=== PATIENT | female | born 2000 | race Hispanic/Latino ===

== ENCOUNTER → 2021-07-22 11:23 | Outpatient (CLI) | payer BC, SELFPAY ==
--- NOTE | ~2021-07-22 | US_ITS ---
EXAMINATION: US soft tissue head and neck DATE: 07/22/2021 11:35 INDICATION: Right supraclavicular mass. TECHNIQUE: Multiple grayscale and Doppler ultrasound images of the right supraclavicular region were obtained. COMPARISON: None FINDINGS: There is a 3.6 x 0.9 x 2.7 cm subcutaneous mass in the right supraclavicular region that is isoechoic with subcutaneous fat with similar echotexture. IMPRESSION: 1. 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 Reviewed, dictated and finalized at location B. TRIMMER
== END ==
PROVIDERS: PCP Nurse Practitioner Adult Health; Visit Provider Nurse Practitioner Adult Health
DX: R59.0 Localized enlarged lymph nodes (principal)
CPT/HCPCS: 76536

== ENCOUNTER 2022-03-28 18:59 | Emergency (ER) | payer BC, SELFPAY ==
--- NOTE | ~2022-03-28 | XR_ITS ---
EXAMINATION: XR chest 2V 03/28/2022 19:19 INDICATION: Shortness of breath and chest pain PROCEDURE: 2 view chest COMPARISON: No prior studies for comparison. FINDINGS: The lungs are clear. The cardiomediastinal silhouette is within normal limits. There are no pleural effusions. There is no pneumothorax suspected. The lungs are hyperinflated which is cons istent with, but not diagnostic of chronic obstructive pulmonary disease. IMPRESSION: 1: NO ACUTE CARDIOPULMONARY DISEASE. Reviewed, dictated and finalized at location A.
--- NOTE | 2022-03-28 19:08 | ED.CHESTPAIN ---
HPI - Chest Pain General Chief Complaint: Shortness of Breath/Dyspnea Stated Complaint: sob/cp Time Seen by Provider: 03/28/22 19:06 History of Present Illness HPI narrative: 22-year-old female presents emergency room for evaluation of a right anterior chest pain. Patient states pain does not radiate, describes the pain as a throbbing sensation. Patient states pain lasts for about 10 minutes and then resolves on its own. Patient denies any associated symptoms. Patient does admit to having URI symptoms last week with cough. Patient also reports that she takes Concerta on a regular basis, and her primary care physician recently increased her dose. Review of Systems Review of Systems: CONSTITUTIONAL: Denies fever, chills, or sweats. EYES: Denies visual changes, redness, or discharge. ENT: Denies rhinorrhea, congestion, sore throat, or otalgia. CARDIOVASCULAR: Reports chest pain, palpitations, or edema. RESPIRATORY: Denies cough or dyspnea. GASTROINTESTINAL: Denies abdominal pain, nausea, vomiting, or diarrhea. GENITOURINARY: Denies dysuria or hematuria. SKIN: Denies rash or itching. MUSCULOSKELETAL: Denies back pain, joint pain, or myalgia. NEUROLOGIC: Denies headache, numbness, dizziness, or weakness. PSYCHIATRIC: Denies anxiety or depression. Exam Narrative: GENERAL: Well-appearing, well-nourished, no physical limitations, and in no acute distress. HEAD: Normocephalic, atraumatic. EYES: Conjunctivae normal, PERRLA and EOMI. NECK: Supple. No meningeal signs. No adenopathy or masses. No carotid bruits or JVD CHEST: Clear to auscultation. No respiratory distress. No wheezes rales or rhonchi. No tenderness. HEART: Regular rate and rhythm. No murmur heard. Normal peripheral pulses. EXTREMITIES: Normal range of motion. No edema. No clubbing or cyanosis SKIN: Warm, dry, no rash. No noted wounds NEURO: No focal deficits. Alert and oriented x3. MAEW. CN's II-XI intact bilaterally, normal gait PSYCH: Cooperative. Normal mood and affect. Course Vital Signs Vital signs: Vital Signs Temperature 36.6 C 03/28/22 19:38 Pulse Rate 82 03/28/22 19:38 Respiratory Rate 16 03/28/22 19:38 Blood Pressure 129/69 03/28/22 19:38 Pulse Oximetry 100 03/28/22 19:38 Oxygen Delivery Room Air 03/28/22 19:38 Temperature 36.6 C 03/28/22 19:38 Pulse Rate 82 03/28/22 19:38 Respiratory Rate 16 03/28/22 19:38 Blood Pressure 129/69 03/28/22 19:38 Pulse Oximetry 100 03/28/22 19:38 Oxygen Delivery Room Air 03/28/22 19:38 MDM - Chest Pain MDM Narrative Medical decision making narrative: 22-year-old female presented the emergency room complaints of left anterior chest pain. Patient states that she had recently recovered from an upper respiratory infection last week. Patient also endorsed having her dose of Concerta increased by her primary care physician over this week. EKG was normal showing no signs of ischemia. Troponin was negative. Chest x-ray shows no acute cardiopulmonary processes. Patient likely experiencing either chest wall pain from a recent URI, or adverse reaction to her Concerta. Discussed findings with patient will have her follow-up with her primary care physician in 1 to 2 weeks. Lab Data Result diagrams: 03/28/22 21:05 03/28/22 21:06 Labs: Lab Results 03/28/22 03/28/22 03/28/22 Range/Units 21:05 21:06 21:06 WBC 7.9 (4.5-10.0) K/mm3 RBC 4.12 L (4.2-5.4) M/mm3 Hgb 12.6 (12.0-15.0) g/dL Hct 38.2 (37.0-47.0) % MCV 92.7 (80-100) fl MCH 30.6 (26-34) pg MCHC 33.0 (32-36) g/dl RDW 12.6 (11.5-14.5) % Plt Count 252 (150-375) k/mm3 MPV 11.3 H (7.4-10.4) fl Immature Gran % (Auto) 0.3 (0-0.5) % Neut % (Auto) 61.8 (45.5-73.1) % Lymph % (Auto) 29.2 (18.3-44.2) % [place] % (Auto) 6.9 (2.6-8.5) % Eos % (Auto) 1.0 (0-4.4) % Baso % (Auto) 0.8 (0.2-1.2) % Lymph # (Auto) 2.31 (0.9-3.2) K/mm3
[2022-03-28 19:38] VITALS: BP 129/69; PULSE 82; RESP 16; TEMP 36.6; O2SAT 100
--- NOTE | 2022-03-28 19:38 | ECG_ITS ---
Measurements Intervals [place] Rate: 81 P: 75 NE: 132 QRS: 61 QRSD: 85 T: 51 QT: 338 QTc: 394 Interpretive Statements SINUS RHYTHM NORMAL ECG Electronically Signed On 03-28-2022 20:27:11 CDT by Freddy Abel D.O.
[2022-03-28 21:21] LABS: Basophils Absolute Auto 0.1 K/mm3 (0.0-0.1); Basophils Percent Auto 0.8 % (0.2-1.2); Eosinophils Absolute Auto 0.1 K/mm3 (0-0.3); Hematocrit 38.2 % (37.0-47.0); Hemoglobin 12.6 g/dL (12.0-15.0); Immature Granulocyte Absolute 0.02 K/mm3 (0.00-0.031); Immature Granulocyte Percent A 0.3 % (0-0.5); Lymphocytes Absolute Auto 2.31 K/mm3 (0.9-3.2); Lymphocytes Percent Auto 29.2 % (18.3-44.2); Mean Corpuscular Hemoglobin 30.6 pg (26-34); Mean Corpuscular Volume 92.7 fl (80-100); Mean Platelet Volume 11.3 fl (7.4-10.4); Monocytes Absolute Auto 0.6 K/mm3 (0.1-0.6); Monocytes Percent Auto 6.9 % (2.6-8.5); Neutrophils Absolute Auto 4.9 K/mm3 (1.3-6.7); Neutrophils Percent Auto 61.8 % (45.5-73.1); Platelet Count Result 252 k/mm3 (150-375); Red Blood Count 4.12 M/mm3 (4.2-5.4); Red Cell Distribution Width 12.6 % (11.5-14.5); White Blood Count 7.9 K/mm3 (4.5-10.0)
[2022-03-28 21:27] LABS: Alanine Aminotransferase 11 U/L (6-35); Albumin Level 4.4 g/dL (3.5-5.1); Alkaline Phosphatase 65 U/L (38-126); Anion Gap 8 mmol/L (8-16); Aspartate Amino Transferase 21 U/L (14-36); Bilirubin,Total 0.4 mg/dL (0.2-1.3); Blood Urea Nitrogen 15 mg/dL (7-17); Calcium 9.1 mg/dL (8.4-10.2); Carbon Dioxide 25 mmol/L (22-30); Chloride 106 mmol/L (98-107); Estimated CRCL calculation 86 ml/min; Estimated Glomerular Filt Rate > 60; Glucose 90 mg/dL (65-110); Lipase 87 U/L (23-300); Potassium 4.2 mmol/L (3.4-5.0); Sodium 139 mmol/L (137-145)
[2022-03-28 21:30] LABS: D Dimer < 0.22 ug/mL (<0.48)
[2022-03-28 21:39] LABS: Troponin I < 0.012 ng/mL (0.000-0.034)
== END 2022-03-28 21:53 | disposition home or self-care (01) ==
LOC: ANHED 21:50
PROVIDERS: Emergency Provider Nurse Practitioner Family; PCP Nurse Practitioner Adult Health
DX: R07.89 Other chest pain (principal)
CPT/HCPCS: 36415; 71046; 80053; 83690; 84484; 85025; 85380; 93005; 99284

== ENCOUNTER → 2022-09-25 15:10 | Outpatient (CLI) | payer BC, SELFPAY ==
--- NOTE | ~2022-09-25 | US_ITS ---
EXAMINATION: US soft tissue groin RT DATE: 09/25/2022 15:27 INDICATION: Right groin mass TECHNIQUE: Multiple grayscale and Doppler ultrasound images of the right inguinal region of concern w ere obtained. COMPARISON: None FINDINGS: 4 right inguinal lymph nodes, 2 of which is at the upper limits of normal in size measuring 1.2 cm an d 1.0 cm in maximal short axis diameters both normal central fatty cami. 2 additional smaller right i nguinal lymph nodes measuring 0.6 cm and 0.4 cm are also identified. There is relatively prominent va scular flow to the right inguinal lymph nodes which were reportedly painful on imaging suggesting the se are reactive. IMPRESSION: 1. Mild likely reactive right inguinal lymphadenopathy. Reviewed, dictated and finalized at location L. [facility]ILLER
== END ==
PROVIDERS: PCP Family Medicine; Visit Provider Family Medicine
DX: R59.1 Generalized enlarged lymph nodes (principal)
CPT/HCPCS: 76882